=== PATIENT | female | born 1970 | race Caucasian/White ===

== ENCOUNTER 2021-12-28 08:56 | Day surgery (SDC) | payer BC ==
[~2021-12-28] VITALS: Ht 154.9 cm; Wt 83.0 kg
[2021-12-28] MEDS ORDERED: fentaNYL citrate 0.05 MG/ML VIAL ONE (11:26)
[2021-12-28] MEDS ORDERED: LIDOCAINE 2% 100 MG/5 ML UJET TP ONE (11:27)
[2021-12-28] MEDS ORDERED: fentaNYL citrate 0.05 MG/ML VIAL IVP ONE (12:30)
== END 2021-12-28 12:37 | disposition home or self-care (01) ==
LOC: MDS 08:56 → MMU 08:57 → MDS 12:37
PROVIDERS: ATTEND Internal Medicine Gastroenterology
DX: Z12.11 Encounter for screening for malignant neoplasm of colon (principal); K57.30 Diverticulosis of large intestine without perforation or abscess without bleeding; E78.5 Hyperlipidemia, unspecified; G40.909 Epilepsy, unspecified, not intractable, without status epilepticus; I10 Essential (primary) hypertension; M19.90 Unspecified osteoarthritis, unspecified site; Z20.822 Contact with and (suspected) exposure to COVID-19; Z88.8 Allergy status to other drugs, medicaments and biological substances; Z79.899 Other long term (current) drug therapy
CPT/HCPCS: 45378; 87426; J3010